=== PATIENT | female | born 1945 | race Caucasian/White ===

== ENCOUNTER 2020-02-01 06:21 | Inpatient (IN) | payer MEDICARE, OTHER ==
[~2020-02-01] VITALS: Ht 160 cm; Wt 64.4 kg
[2020-02-01 07:30] VITALS: BP 187/75
--- NOTE | 2020-02-01 07:30 | NUR ---
FINISHING SUPERVISOR NOTES PATIENT ARRIVED VIA AMBULANCE, ON GURNEY FROM [facility], DUE TO HYPERTENSIVE URGENCY. REPORT RECEIVED EARLIER BY DAISY ZIMMER RN. PATIENT ALERT/AWAKE X 4, CYMRAES SPEAKING, DAUGHTER TRANSLATE VIA PHONE, ON ROOM AIR, O2 SAT AT 98%, SINUS RHYTHM ON MONITOR, DENIES ANY CHEST PAIN OR DISCOMFORT, RT AC IV ACCESS G20, FLUSHES WELL, SITE CLEAR, ABLE TO AMBULATE,STEADY GAIT. UNIT ORIENTATION AND USE OF CALL LIGHT DONE, BED LOW LOCKED, SAFETY MEASURES IN PLACE, CALL LIGHT WITHIN REACH, WILL MONITOR. DR. TERRANCE CHEEMA NOTIFIED OF ADMISSION.
--- NOTE | 2020-02-01 08:19 | NUR ---
RN NOTE FOLLOW UP CALL TO DR. TERRANCE CHEEMA FOR ADMIT ORDERS.
--- NOTE | 2020-02-01 08:29 | NUR ---
RN NOTES INFORMED DR. DENVER CHEEMA, PATIENT WANTS TO GO AMA
--- NOTE | 2020-02-01 09:30 | NUR ---
RN NOTES DR. TERRANCE CHEEMA AT BEDSIDE. TALKING TO PT'S DAUGHTER ALFONSO.
--- NOTE | 2020-02-01 09:49 | NUR ---
RN NOTES SPOKE WITH DAUGHTER ALFONSO, PER HER, PATIENT WANTS TO GO HOME AND WOULD JUST SEE HER PRIMARY DOCTOR. WILL NOTIFY
[2020-02-01] MEDS ORDERED: SIMV-49 PO (10:33)
[2020-02-01] MEDS ORDERED: PROP20TA19 PO (10:33)
[2020-02-01] MEDS ORDERED: MECL-159 PO (10:33)
[2020-02-01] MEDS ORDERED: HYDR-4076 PO (10:33)
[2020-02-01] MEDS ORDERED: CLOP75TA15 PO (10:33)
[2020-02-01] MEDS ORDERED: LOSA50TA39 PO (10:33)
[2020-02-01] MEDS ORDERED: OMEP20CA15 PO (10:33)
[2020-02-01] MEDS ORDERED: ESCI10TA PO (10:33)
--- NOTE | 2020-02-01 11:05 | NUR ---
RN NOTES PATIENT ACCOMPANIED BY DAUGHTER ALFONSO TO MOOKIE. DISCHARGED AGAINST MEDICAL ADVISE DESPITE EXPLAINING THE RISK. PER PATIENT SHE WILL HER PRIMARY DOCTOR AND WILL MAKE APPOINTMENT [facility]. NO MEDICATIONS ON FILE. IV ACCESS TO RIGHT AC REMOVED, PRESSURE APPLIED, NO BLEEDING, DRESSING IN PLACE. PROVIDED, INSTRUCTIONS AND HEALTH TEACHINGS. AMA PAPERS SIGNED. BELONGINGS CHECKED AND RETURNED. WILL GO HOME VIA PRIVATE CAR WITH DAUGHTER.
[2020-02-01] MEDS ORDERED: CLON0.1T PO (12:15)
[2020-02-01] MEDS ORDERED: TERA5CAP4 PO (12:15)
== END 2020-02-01 11:03 | disposition left against medical advice (07) | DRG 65 ==
LOC: TELE1 07:10
PROVIDERS: ADMIT Internal Medicine; ATTEND Internal Medicine
DX: I63.81 Other cerebral infarction due to occlusion or stenosis of small artery (principal); I50.32 Chronic diastolic (congestive) heart failure; I11.0 Hypertensive heart disease with heart failure; E66.9 Obesity, unspecified; H81.10 Benign paroxysmal vertigo, unspecified ear; M19.90 Unspecified osteoarthritis, unspecified site; Z68.25 Body mass index [BMI] 25.0-25.9, adult
CPT/HCPCS: G0378